=== PATIENT | male | born 1990 | race Caucasian/White ===

== ENCOUNTER 2016-08-08 22:44 | Emergency (ER) | payer SELFPAY ==
[~2016-08-08] VITALS: Ht 167.6 cm; Wt 77.1 kg
[2016-08-08 23:33] LABS: CALCIUM, SERUM 8.7 mg/dL (8.5-10.1); CREATININE 1.2 mg/dL (0.6-1.3); POTASSIUM 3.9 mmol/L (3.5-5.1)
[2016-08-08 23:36] LABS: PHENYTOIN (DILANTIN) 2.4 ug/ml (10.0-20.0)
[2016-08-09] MEDS ORDERED: IV NS 0.9% 100 ML IV ONE (00:21)
[2016-08-09] MEDS ORDERED: IV SET PRIMARY PUMP SET 1 EA INFUS.SET MC ONE (00:21)
[2016-08-09] MEDS ORDERED: phenytoin SODIUM IV 250 MG/5 ML VIAL IV ONE (00:21)
[2016-08-09] MEDS ORDERED: PHENYTOIN SODIUM IV 1,000 MG in IV NS 0.9% 100 ML IV ONE (00:30)
[2016-08-09] MEDS ORDERED: MORPHINE SULFATE INJ 4 MG/ML DISP.SYRIN ONE (01:18)
[2016-08-09] MEDS ORDERED: IV FILTER 5 MICRON 1 EA INFUS.SET MC ONE (01:18)
[2016-08-09] MEDS ORDERED: MORPHINE SULFATE INJ 2 MG/ML DISP.SYRIN IM ONE (01:30)
[2016-08-09 01:51] VITALS: BP 115/71
== END 2016-08-09 01:52 | disposition home or self-care (01) ==
LOC: ER 22:47
DX: G40.802 Other epilepsy, not intractable, without status epilepticus (principal)
CPT/HCPCS: 36415; 80048; 80185; 82962; 96360; 99284; A4606; J1165; J2270; J7030; Z7610